=== PATIENT | male | born 1965 | race Hispanic/Latino ===

== ENCOUNTER 2021-07-08 10:06 | Observation (INO) | payer BC ==
[2021-07-08 10:45] LABS: Absolute Lymphocytes (CBC) 2.4 K/uL (0.7-4.9); Basophils % 1.5 % (0-1.3); Hematocrit 45.8 % (39.6-49.0); Lymphocytes % 34.5 % (15.3-44.8)
[2021-07-08 10:49] LABS: Protime INR 0.95
--- NOTE | 2021-07-08 10:56 | RAD REPORT ---
EXAM DESCRIPTION: CT - Head Brain Wo Cont - 07/08/2021 10:37 am CLINICAL HISTORY: PAIN COMPARISON: No comparisons TECHNIQUE: Axial 5 mm thick images of the head were obtained without IV contrast. All CT scans are performed using dose optimization technique as appropriate and may include automated exposure control or mA/KV adjustment according to patient size. FINDINGS: No intracranial hemorrhage, mass, edema or shift of mid-line structures. No acute infarcti on changes seen. No abnormal extra-axial fluid collections. Ventricles are normal. Dense for age art erial calcifications are present. Mastoid air cells and visualized portions of the paranasal sinuses are clear. No acute bony findings. IMPRESSION: Negative noncontrast CT study for acute intracranial finding. Patient has advanced for age arterial tree calcifications.
[2021-07-08] MEDS ORDERED: NA CHLORIDE 0.9% 1,000 ML ONE ×2 (10:58→15:40)
[2021-07-08 11:02] LABS: ALT/SGPT 47 U/L (12-78); AST/SGOT 10 U/L (15-37); Albumin 4.7 g/dL (3.4-5.0); Alkaline Phosphatase 107 U/L (45-117); BUN Blood Urea Nitrogen 49 mg/dL (7-18); Bicarbonate 25 mmol/L (21-32); Bilirubin Direct 0.2 mg/dL (0-0.2); Bilirubin Total 0.6 mg/dL (0.2-1.0); Glucose Level 94 mg/dL (74-106); Magnesium 2.4 mg/dL (1.8-2.4); NT PRO-BNP 16 pg/mL (<125); Potassium 4.1 mmol/L (3.5-5.1); Protein, Total 8.2 g/dL (6.4-8.2); Sodium Level 136 mmol/L (136-145); Troponin (Emerg Dept Use Only) < 0.02 ng/mL (0.0-0.045)
[2021-07-08] MEDS ORDERED: ACETAMINOPHEN 500 MG TAB ONE ×2 (11:29→19:27)
--- NOTE | 2021-07-08 11:29 | RAD REPORT ---
EXAM DESCRIPTION: RAD - Chest Single View - 07/08/2021 10:46 am CLINICAL HISTORY: low bp COMPARISON: None TECHNIQUE: AP portable chest image was obtained 07/08/2021 10:46 am . FINDINGS: Lungs are clear. Heart and vasculature are normal. No measurable pleural effusion and no p neumothorax. No acute bony abnormality seen. No acute aortic findings suspected. IMPRESSION: No acute cardiopulmonary process.
--- NOTE | 2021-07-08 12:38 | ER ---
Nurse's Notes [facility] Name: Pablo Reed Age: 56 yrs Sex: Male : 1965 Arrival Date: 07/08/2021 Time: 10:11 Bed 23 Private MD: Diagnosis: Hypotension, unspecified;Acute kidney failure, unspecified;Dizziness and giddiness Presentation: 07/08 10:12 Chief complaint: Patient states: diizziness, head ache. Coronavirus screen: Client da3 denies travel out of the [place] in the last 14 days. Ebola Screen: No symptoms or risks identified at this time. Risk Assessment: Do you want to hurt yourself or someone else? Patient reports no desire to harm self or others. 10:12 Method Of Arrival: Ambulatory da3 10:12 Acuity: CAMMY 3 da3 11:21 Initial Sepsis Screen: Does the patient meet any 2 criteria? No. Patient's initial vg1 sepsis screen is negative. Does the patient have a suspected source of infection? No. Patient's initial sepsis screen is negative. Onset of symptoms was July 05, 2021. Triage Assessment: 10:16 General: Appears in no apparent distress. comfortable, Behavior is calm, cooperative. da3 Historical: - Allergies: 10:16 No Known Allergies; da3 - Home Meds: 11:20 Lisinopril Oral [Active]; vg1 - PMHx: 12:40 Hypertensive disorder; vg1 - Immunization history:: Client reports receiving the 2nd dose of the Covid vaccine. - Social history:: Smoking status: Patient denies any tobacco usage or history of. Screenin:21 Abuse screen: Denies threats or abuse. Nutritional screening: No deficits noted. vg1 Tuberculosis screening: No symptoms or risk factors identified. Fall Risk No fall in past 12 months (0 pts). No secondary diagnosis (0 pts). IV access (20 points). Ambulatory Aid- None/Bed Rest/Nurse Assist (0 pts). Gait- Normal/Bed Rest/Wheelchair (0 pts) Mental Status- Oriented to own ability (0 pts). Total Medina Fall Scale indicates No Risk (0-24 pts). Assessment: 10:50 General: Appears in no apparent distress. comfortable. Pain: Complains of pain in head vg1 Pain currently is 6 out of 10 on a pain scale. Pain began 2-3 days ago. Neuro: Level of Consciousness is awake, alert, obeys commands, Oriented to person, place, time, situation. Cardiovascular: Patient's skin is warm and dry. Respiratory: Airway is patent Respiratory effort is even, unlabored. GI: Reports nausea, Patient currently denies vomiting. : No signs and/or symptoms were reported regarding the genitourinary system. EENT: No signs and/or symptoms were reported regarding the EENT system. Derm: Skin is intact, is healthy with good turgor. Musculoskeletal: Circulation, motion, and sensation intact. 12:15 Reassessment: Patient appears in no apparent distress at this time. No changes from 1 previously documented assessment. Patient and/or family updated on plan of care and expected duration. Pain level reassessed. Patient is alert, oriented x 3, equal unlabored respirations, skin warm/dry/pink. 13:44 Reassessment: Pt c/o headache, Pain rated 6/10 Received VO from Nilay COMMISSIONER OF [employer]ICIALS to 1 administer Fentanyl 25 mcg IVP x1. 14:49 Reassessment: Patient appears in no apparent distress at this time. Patient and/or vg1 family updated on plan of care and expected duration. Pain level reassessed. Patient is alert, oriented x 3, equal unlabored respirations, skin warm/dry/pink. Vital Signs: 10:14 BP 85 / 55; Pulse 80; Resp 18; Temp 98.4; Pulse Ox 97% on R/A; da3 10:50 BP 100 / 64; Pulse 74; Resp 16; Pulse Ox 100% on R/A; vg1 11:05 BP 97 / 63 Supine; Pulse 68; vg1 11:07 BP 102 / 62 Sitting; Pulse 72; vg1 11:09 BP 98 / 65 Standing; Pulse 75; vg1 11:20 Weight 84.37 kg; Height 5 ft. 10 in. (177.80 cm); vg1 12:00 BP 111 / 65; Pulse 75; Resp 16; Pulse Ox 100% ; vg1 12:30 BP 99 / 60; Pulse 68; Resp 16; Pulse Ox 100% on R/A; vg1 13:00 BP 107 / 65; Pulse 64; Resp 12; Pulse Ox 100% on R/A; vg1 13:30 BP 101 / 57; Pulse 66; Resp 18; Pulse Ox 100% on R/A; vg1 14:00 BP 104 / 61; Pulse 64; Resp 14; Pulse Ox 100% on R/A; vg1 14:30 BP 106 / 71; Pulse 63; Resp 14; Pulse Ox 100% on R/A; vg1 11:20 Body Mass Index 26.69 (84.37 kg, 177.80 cm) vg1 ED Course: 10:11 Patient arrived in ED. am2 10:14 Triage completed. da3 10:21 Mabel Pemberton FNP-C is PHCP. kb 10:21 Gopi Byers MD is Attending Physician. kb 10:33 Dipti Forbes, NUBIA is Primary Nurse. vg1 10:37 CT Head Brain wo Cont In Process Unspecified. EDMS 10:46 XRAY Chest (1 view) In Process Unspecified. EDMS 11:21 Arm band placed on. vg1 11:21 Patient has correct armband on for positive identification. Placed in gown. Bed in low vg1 position. Call light in reach. Side rails up X 1. Adult w/ patient. 12:37 Daniele Kelley MD is Hospitalizing Provider. kb 16:38 No provider procedures requiring assistance completed. Patient admitted, IV remains in vg1 place. 19:25 Inserted saline lock: 20 gauge in left antecubital area, using aseptic technique. Blood bs2 collected. 19:26 Inserted saline lock: 22 gauge in right forearm, using aseptic technique. bs2 22:14 Report given to Annabelle DELACRUZ. vg1 Administered Medications: 11:09 Drug: Tylenol 1000 mg Route: PO; vg1 13:42 Follow up: Response: No adverse reaction vg1 11:10 Drug: NS 0.9% 1000 ml Route: IV; Rate: 1000 ml; Site: right antecubital; vg1 13:42 Follow up: IV Status: Completed infusion; IV Intake: 1000ml vg1 14:20 Drug: fentaNYL (PF) 25 mcg Route: IVP; Site: right antecubital; vg1 16:38 Follow up: Response: No adverse reaction; Marked relief of symptoms vg1 Intake: 13:42 IV: 1000ml; Total: 1000ml. vg1 Outcome: 12:38 Decision to Hospitalize by Provider. kb 16:37 Admitted to ER Hold. Please see [facility] for further documentation. vg1 16:37 Condition: stable 16:37 Instructed on the need for admit. 07/09 12:23 Patient left the ED. jl7 Signatures: Dispatcher [employer] EDMabel Zarate, [employer]-Dillan [employer]-CkMan Gabriel, RN RN jl7 Jane Rodriguez am2 Dipti Forbes, RN RN vg1 Oscar Lazo, RN RN da3 Annabelle Soto, RN RN bs2 Corrections: (The following items were deleted from the chart) 07/08 13:46 13:44 Reassessment: Received VO from Nilay [employer] to administer Fentanyl 25 mcg IVP x1 vg1vg1 19:26 19:25 Inserted saline lock: 20 gauge in right antecubital area, using aseptic bs2 technique. Blood collected. bs2 19:26 19:26 Inserted saline lock: 22 gauge bs2 bs2
--- NOTE | 2021-07-08 12:39 | EDPHYS ---
Physician Documentation [facility] Name: Pablo Reed Age: 56 yrs Sex: Male : 1965 Arrival Date: 07/08/2021 Time: 10:11 Bed 23 Private MD: ED Physician Gopi Byers HPI: 07/08 15:47 This 56 yrs old Male presents to ER via Ambulatory with complaints of Blood kb Pressure Problem - low, Dizziness. 15:47 The patient presents with dizziness. The patient has not recently seen a physician. kb Historical: - Allergies: 10:16 No Known Allergies; da3 - Home Meds: 11:20 Lisinopril Oral [Active]; vg1 - PMHx: 12:40 Hypertensive disorder; vg1 - Immunization history:: Client reports receiving the 2nd dose of the Covid vaccine. - Social history:: Smoking status: Patient denies any tobacco usage or history of. ROS: 15:46 Constitutional: Negative for fever, chills, and weight loss. kb 15:46 Neuro: Positive for dizziness, headache. 15:46 All other systems are negative. Exam: 15:47 Constitutional: This is a well developed, well nourished patient who is awake, alert, kb and in no acute distress. Head/Face: Normocephalic, atraumatic. Eyes: Pupils equal round and reactive to light, extra-ocular motions intact. Lids and lashes normal. Conjunctiva and sclera are non-icteric and not injected. Cornea within normal limits. Periorbital areas with no swelling, redness, or edema. ENT: Moist Mucous membranes Cardiovascular: Regular rate and rhythm with a normal S1 and S2. No gallops, murmurs, or rubs. No pulse deficits. Respiratory: Respirations even and unlabored. No increased work of breathing, no retractions or nasal flaring. Skin: Warm, dry with normal turgor. Normal color. MS/ Extremity: Pulses equal, no cyanosis. Neurovascular intact. Full, normal range of motion. Neuro: Awake and alert, GCS 15, oriented to person, place, time, and situation. Moves all extremities. Normal gait. Psych: Awake, alert, with orientation to person, place and time. Behavior, mood, and affect are within normal limits. Vital Signs: 10:14 BP 85 / 55; Pulse 80; Resp 18; Temp 98.4; Pulse Ox 97% on R/A; da3 10:50 BP 100 / 64; Pulse 74; Resp 16; Pulse Ox 100% on R/A; vg1 11:05 BP 97 / 63 Supine; Pulse 68; vg1 11:07 BP 102 / 62 Sitting; Pulse 72; vg1 11:09 BP 98 / 65 Standing; Pulse 75; vg1 11:20 Weight 84.37 kg; Height 5 ft. 10 in. (177.80 cm); vg1 12:00 BP 111 / 65; Pulse 75; Resp 16; Pulse Ox 100% ; vg1 12:30 BP 99 / 60; Pulse 68; Resp 16; Pulse Ox 100% on R/A; vg1 13:00 BP 107 / 65; Pulse 64; Resp 12; Pulse Ox 100% on R/A; vg1 13:30 BP 101 / 57; Pulse 66; Resp 18; Pulse Ox 100% on R/A; vg1 14:00 BP 104 / 61; Pulse 64; Resp 14; Pulse Ox 100% on R/A; vg1 14:30 BP 106 / 71; Pulse 63; Resp 14; Pulse Ox 100% on R/A; vg1 11:20 Body Mass Index 26.69 (84.37 kg, 177.80 cm) vg1 MDM: 10:22 Patient medically screened. kb 12:37 Data reviewed: vital signs, nurses notes. Data interpreted: Pulse oximetry: on room air kb is 100 %. Interpretation: normal. Counseling: I had a detailed discussion with the patient and/or guardian regarding: the historical points, exam findings, and any diagnostic results supporting the discharge/admit diagnosis, lab results, radiology results, the need for further work-up and treatment in the hospital. Physician consultation: Daniele Kelley MD was contacted at 12:37, regarding admission, to the telemetry unit. patient's condition, and will see patient in ED. 07/08 10: Order name: Basic Metabolic Panel; Complete Time: 11:05 kb 07/08 10: Order name: CBC with Diff; Complete Time: 11:05 kb 07/08 10:21 Order name: LFT's; Complete Time: 11:05 kb 07/08 10: Order name: Magnesium; Complete Time: 11:05 kb 07/08 10:21 Order name: NT PRO-BNP; Complete Time: 11:05 kb 07/08 10:21 Order name: PT-INR; Complete Time: 11:05 kb 07/08 10:21 Order name: Troponin (emerg Dept Use Only); Complete Time: 11:05 kb 07/08 10:21 Order name: XRAY Chest (1 view); Complete Time: 11:32 kb 07/08 10:21 Order name: CT Head Brain wo Cont; Complete Time: 11:05 kb 07/08 14:26 Order name: SARS-COV-2 RT PCR; Complete Time: 14:29 EDMS 07/09 06:07 Order name: CBC with Automated Diff EDMS 07/09 06:36 Order name: Basic Metabolic Panel EDMS 07/08 10:21 Order name: EKG; Complete Time: 10:22 kb 07/08 10:21 Order name: Cardiac monitoring; Complete Time: 11:00 kb 07/08 10:21 Order name: EKG - Nurse/Tech; Complete Time: 11:00 kb 07/08 10:21 Order name: IV Saline Lock; Complete Time: 11:00 kb 07/08 10:21 Order name: Labs collected and sent; Complete Time: 11:00 kb 07/08 10:21 Order name: O2 Per Protocol; Complete Time: 11:00 kb 07/08 10:21 Order name: O2 Sat Monitoring; Complete Time: 11:00 kb 07/08 11:05 Order name: Orthostatics; Complete Time: 11:19 kb 07/08 13:58 Order name: Consistent Carb (ADA) 1800 Hammad EDMS Administered Medications: 11:09 Drug: Tylenol 1000 mg Route: PO; vg1 13:42 Follow up: Response: No adverse reaction vg1 11:10 Drug: NS 0.9% 1000 ml Route: IV; Rate: 1000 ml; Site: right antecubital; vg1 13:42 Follow up: IV Status: Completed infusion; IV Intake: 1000ml vg1 14:20 Drug: fentaNYL (PF) 25 mcg Route: IVP; Site: right antecubital; vg1 16:38 Follow up: Response: No adverse reaction; Marked relief of symptoms vg1 Disposition: 19:31 Co-signature as Attending Physician, Gopi Byers MD I agree with the assessment and kdr plan of care. Disposition Summary: 07/08/21 12:38 Hospitalization Ordered Hospitalization Status: Inpatient Admission kb Provider: Daniele Kelley Condition: Stable kb Problem: new kb Symptoms: are unchanged kb Bed/Room Type: Standard kb Location: [facility] ER HOLD(07/08/21 19:30) Room Assignment: ERHOLD-(07/08/21 19:30) cg Diagnosis - Hypotension, unspecified kb - Acute kidney failure, unspecified kb - Dizziness and giddiness kb Forms: - Medication Reconciliation Form kb - SBAR form kb Signatures: Dispatcher [employer] EDMS Mabel Pemberton, TATIANA-C PLUMBER ASSISTANT-Gopi Eric MD MD kdr Garcia, Cindy, RN RN cg Dipti Forbes RN RN vg1 Oscar Lazo, RN RN da3 Corrections: (The following items were deleted from the chart) 13:20 12:38 CORONAVIRUS+Z ordered. EDWI EDWI 19:30 12:38 Telemetry/MedSurg (Inpatient) kb 19:30 12:38 kb cg
[2021-07-08] MEDS ORDERED: ONDANSETRON 4 MG/2 ML VIAL IV PRN (13:53)
--- NOTE | 2021-07-08 13:58 | P.HP ---
Certification for Inpatient Patient admitted to: Observation With expected LOS: <2 Midnights Patient will require the following post-hospital care: None Practitioner: I am a practitioner with admitting privileges, knowledge of patient current condition, hospital course, and medical plan of care. Services: Services provided to patient in accordance with Admission requirements found in Title 42 Section 412.3 of the Code of Federal Regulations Patient History Date of Service: 07/08/21 Reason for admission: Hypotension, EDD. History of Present Illness: 56-year-old male patient with history of hypertension who was evaluated in the emergency room for episode of weakness and found to be having low blood pressure. He had complained of dizzy spells and headaches. He was worked up in the emergency room was found to have systolic blood pressure in the 80s so he was given normal saline bolus. Labs also revealed elevated creatinine of 2.85. He denies prior history of kidney problems or any family history of kidney disease. He uses lisinopril for blood pressure control and he also reported loose stools that happened over a period of 2 days. He had about 4 episodes of watery diarrhea. No fever or chills. He denies vomiting episode. He did state that he was working out in the open in the heat and he thinks he was dehydrated because of working in the open. He was admitted for observation and hydration secondary to his hypotensive episode and acute kidney injury. Home medications list reviewed: Yes - Past Medical/Surgical History Has patient received pneumonia vaccine in the past: No Review of Systems General: Weakness Eyes: Unremarkable ENT: Unremarkable Respiratory: Unremarkable Cardiovascular: Light Headedness Gastrointestinal: Diarrhea Genitourinary: Unremarkable Musculoskeletal: Unremarkable Integumentary: Unremarkable Neurological: Other (dizziness.) Physical Examination - Physical Exam General: Alert, Oriented x3 HEENT: Atraumatic, Normocephalic Neck: Supple Respiratory: Clear to auscultation bilaterally Cardiovascular: Normal pulses, Regular rate/rhythm Gastrointestinal: Soft and benign Neurological: Normal strength at 5/5 x4 extr, Sensation intact, Cranial nerves 3-12 intact - Studies Laboratory Data (last 24 hrs) 07/08/21 10:23: PT 10.9, INR 0.95 07/08/21 10:23: WBC 6.90, Hgb 15.7, Hct 45.8, Plt Count 327 07/08/21 10:23: Sodium 136, Potassium 4.1, BUN 49 H, Creatinine 2.85 H, Glucose 94, Magnesium 2.4, Total Bilirubin 0.6, AST 10 L, ALT 47, Alkaline Phosphatase 107 Assessment and Plan - Plan Hypotension: Patient did have episode of volume depletion related to diarrhea episode. He also did work out in open and is concerned for significant heat stroke. Evaluation #7 adjust therapy We will monitor symptomatology and vital signs closely. We will continue aggressive isotonic fluid hydration. Acute kidney injury: Elevated creatinine of 2.85 noted on labs. He had issues with volume depletion from diarrhea and also significantly increased insensible losses due to his exposure to the elements. We think this is perhaps the reason for his acute episode. We will continue aggressive hydration and follow symptoms closely History of hypertension: We will hold lisinopril doses at this time and monitor vitals per unit protocol Discharge Plan: Home - Advance Directives Does patient have a Living Will: No Does patient have a Durable POA for Healthcare: No
[2021-07-08] MEDS: NA CHLORIDE 0.9% 1,000 ML IV SCH (14:00)
[2021-07-08] MEDS ORDERED: FENTANYL CITR 100 MCG/2 ML ONE (14:42)
[2021-07-08 15:01] VITALS: BMI 26.6
[2021-07-08] MEDS: HEPARIN 5000 UNIT/ML 1 ML VIAL SQ SCH (17:00)
[2021-07-08] MEDS ORDERED: HEPARIN 5000 UNIT/ML 1 ML VIAL ONE (17:37)
[2021-07-08] MEDS: ACETAMINOPHEN 500 MG TAB PO PRN (19:01)
[2021-07-09] MEDS: NA CHLORIDE 0.9% 1,000 ML IV SCH
[2021-07-09] MEDS: HEPARIN 5000 UNIT/ML 1 ML VIAL SQ SCH (01:00)
[2021-07-09] MEDS ORDERED: NA CHLORIDE 0.9% 1,000 ML ONE (01:36)
[2021-07-09] MEDS ORDERED: FENTANYL CITR 100 MCG/2 ML IV ONE (02:00)
[2021-07-09] MEDS ORDERED: FENTANYL CITR 100 MCG/2 ML ONE ×2 (02:18→06:33)
[2021-07-09 05:57] LABS: Absolute Lymphocytes (CBC) 2.1 K/uL (0.7-4.9); Basophils % 1.2 % (0-1.3); Hematocrit 43.3 % (39.6-49.0); MPV 6.8 fL (7.6-11.3); RBC Red Blood Cell Count 4.63 M/uL (4.33-5.43)
[2021-07-09] MEDS ORDERED: ACETAMINOPHEN 500 MG TAB ONE (07:49)
[2021-07-09] MEDS: ACETAMINOPHEN 500 MG TAB PO PRN (08:30)
[2021-07-09] MEDS ORDERED: HEPARIN 5000 UNIT/ML 1 ML VIAL SQ SCH (09:00)
[2021-07-09] MEDS ORDERED: HEPARIN 5000 UNIT/ML 1 ML VIAL ONE (09:33)
--- NOTE | 2021-07-09 11:28 | P.DS ---
Discharge Date: 07/09/21 Disposition: ROUTINE DISCHARGE Discharge Condition: GOOD Reason for Admission: Hypotension, EDD. Brief History of Present Illness: Pt is a 56-year-old male patient with history of hypertension who was evaluated in the emergency room for episode of weakness and found to be having low blood pressure. He had complained of dizzy spells and headaches. He was worked up in the emergency room was found to have systolic blood pressure in the 80s so he was given normal saline bolus. Labs also revealed elevated creatinine of 2.85. He denies prior history of kidney problems or any family history of kidney disease. He uses lisinopril for blood pressure control and he also reported loose stools that happened over a period of 2 days. He had about 4 episodes of watery diarrhea. No fever or chills. He denies vomiting episode. He did state that he was working out in the open in the heat and he thinks he was dehydrated because of working in the open. He was admitted for observation and hydration secondary to his hypotensive episo de and acute kidney injury. Hospital Course: Patient has been hemodynamically stable. Patient clinically is doing much better and is stable for discharge home. Vital Signs/Physical Exam: Temp Pulse Resp BP Pulse Ox 98.6 F 76 16 114/88 100 07/09/21 08:00 07/09/21 08:00 07/09/21 08:00 07/09/21 08:00 07/09/21 08:00 General: Alert, In no apparent distress, Oriented x3 Laboratory Data at Discharge: WBC 6.00 K/uL (4.3-10.9) 07/09/21 05:43 Hgb 14.8 g/dL (13.6-17.9) 07/09/21 05:43 Hct 43.3 % (39.6-49.0) 07/09/21 05:43 Plt Count 273 K/uL (152-406) 07/09/21 05:43 PT 10.9 SECONDS (9.5-12.5) 07/08/21 10:23 INR 0.95 07/08/21 10:23 Sodium 138 mmol/L (136-145) 07/09/21 05:43 Potassium 5.0 mmol/L (3.5-5.1) 07/09/21 05:43 BUN 30 mg/dL (7-18) H 07/09/21 05:43 Creatinine 1.17 mg/dL (0.55-1.3) D 07/09/21 05:43 Glucose 99 mg/dL (74-106) 07/09/21 05:43 Magnesium 2.4 mg/dL (1.8-2.4) 07/08/21 10:23 Total Bilirubin 0.6 mg/dL (0.2-1.0) 07/08/21 10:23 AST 10 U/L (15-37) L 07/08/21 10:23 ALT 47 U/L (12-78) 07/08/21 10:23 Alkaline Phosphatase 107 U/L (45-117) 07/08/21 10:23 Home Medications: Amlodipine [Norvasc*] 5 mg PO DAILY #30 tab 07/09/21 Tamsulosin [Flomax*] 0.4 mg PO DAILY 07/09/21 New Medications: Amlodipine [Norvasc*] 5 mg PO DAILY #30 tab Physician Discharge Instructions: OK TO DC IV AND DC HOME FOLLOW-UP WITH PCP IN 1-2 WEEKS RETURN TO THE ER IF SYMPTOMS WORSENS REPEAT LABS IN 1 WEEK TO MONITOR RENAL FUNCTION CALL ME IF ANY COMPLAINTS REGARDING HOSPITAL STAY Diet: AHA Activity: Fall precautions Followup: NONE,NONE [Primary Care Provider] - Time spent managing pt's care (in minutes): 35
[2021-07-09 12:05] VITALS: BP 133/87; TEMP 98.1
[2021-07-09 12:47] VITALS: O2SAT 100
--- NOTE | 2021-07-10 10:45 | EKG ---
Test Date: 2021-07-08 Test Time: 10:25:05 Supervisor Last Model Department: [facility] MEASUREMENT RESULTS: Intervals: Rate: 75 WI: 144 QRSD: 88 QT: 350 QTc: 390 [place]: P: 65 WI: 144 QRS: 68 T: 43 INTERPRETIVE STATEMENTS: Normal sinus rhythm Normal ECG No previous ECG available for comparison Electronically Signed On 07-10-21 10:40:21 CDT by Chepe Castaneda
== END 2021-07-09 12:23 | disposition home or self-care (01) ==
LOC: ER 10:06 → ERHOLD 13:54
PROVIDERS: ADMIT Internal Medicine Nephrology; ATTEND Hospitalist
DX: I95.9 Hypotension, unspecified (principal); N17.9 Acute kidney failure, unspecified; I10 Essential (primary) hypertension; Z20.822 Contact with and (suspected) exposure to COVID-19
CPT/HCPCS: 96361; 93005; 85025 ×2; 80048 ×2; 36415; 83735; 85610; 80076; 84484; 83880; 70450; 71045; 96374; 99285; U0003; J1644 ×2; J3010 ×2; J7030 ×3; G0378 ×3

== ENCOUNTER 2022-06-19 06:10 | Emergency (ER) | payer BC, SELFPAY ==
[2022-06-19] MEDS ORDERED: ACETAMINOPHEN 500 MG TAB ONE (06:47)
[2022-06-19] MEDS ORDERED: NA CHLORIDE 0.9% 0 ML ONE (07:00)
[2022-06-19] MEDS ORDERED: NA CHLORIDE 0.9% 1,000 ML ONE (07:07)
[2022-06-19 07:13] LABS: Absolute Lymphocytes (CBC) 0.9 K/uL (0.7-4.9); Hematocrit 44.3 % (39.6-49.0); Lymphocytes % 9.8 % (15.3-44.8); MCV 90.1 fL (80-100); MPV 6.7 fL (7.6-11.3); RBC Red Blood Cell Count 4.92 M/uL (4.33-5.43)
[2022-06-19 07:26] LABS: Potassium 3.9 mmol/L (3.5-5.1)
[2022-06-19] MEDS ORDERED: KETOROLAC 30 MG/ML INJ ONE (08:12)
[2022-06-19 09:04] VITALS: BP 139/82; TEMP 98.8; O2SAT 98
--- NOTE | 2022-06-21 09:17 | ER ---
Nurse's Notes [facility] Name: Pablo Reed Age: 57 yrs Sex: Male : 1965 Arrival Date: 06/19/2022 Time: 06:15 Bed 13 Private MD: Diagnosis: SARS-associated coronavirus as the cause of diseases classified elsewhere Presentation: 06/19 06:20 Chief complaint: Patient states: Fever, sore throat, headache, generalized body aches lp1 that began 1 day ago. 06:20 Method Of Arrival: Ambulatory lp1 06:20 Coronavirus screen: fatigue, fever, headache, sore throat. Ebola Screen: No symptoms or lp1 risks identified at this time. Initial Sepsis Screen: Does the patient meet any 2 criteria? No. Patient's initial sepsis screen is negative. Does the patient have a suspected source of infection? No. Patient's initial sepsis screen is negative. Risk Assessment: Do you want to hurt yourself or someone else? Patient reports no desire to harm self or others. Onset of symptoms was June 19, 2022. 06:20 Acuity: CAMMY 3 lp1 Triage Assessment: 07:00 General: Appears in no apparent distress. uncomfortable, Behavior is calm, cooperative, bp appropriate for age. Pain: Complains of pain in head. EENT: No deficits noted. Neuro: No deficits noted. Cardiovascular: No deficits noted. Respiratory: No deficits noted. GI: No signs and/or symptoms were reported involving the gastrointestinal system. : No signs and/or symptoms were reported regarding the genitourinary system. Derm: No deficits noted. Musculoskeletal: No deficits noted. Historical: - Allergies: 06:43 No Known Allergies; lp1 - Home Meds: 06:43 lisinopril Oral [Active]; lp1 - PMHx: 06:43 Hypertensive disorder; lp1 - PSHx: 06:43 None; lp1 - Immunization history:: Adult Immunizations up to date. - Social history:: Smoking status: Patient denies any tobacco usage or history of. Screenin:44 Abuse screen: Denies threats or abuse. Denies injuries from another. Nutritional lp1 screening: No deficits noted. Tuberculosis screening: No symptoms or risk factors identified. Fall Risk None identified. Assessment: 07:00 Reassessment: RECD REPORT FROM AJ DELACRUZ. 57YO HM P/W FEVER AND FLU-LIKE S/S. ALL bp CURRENT ORDERS COMPLETE, IVF INFUSING. Pain: Complains of pain in head. Respiratory: Airway is patent Respiratory effort is even, unlabored, Breath sounds are clear bilaterally. EENT: Throat is reddened. 08:34 Reassessment: PT D/C HOME AMBULATORY WITH FAMILY, DX WITH COVID. bp Vital Signs: 06:20 BP 162 / 99; Pulse 94; Resp 18; Temp 102.5(O); Pulse Ox 99% on R/A; Weight 86.18 kg lp1 (R); Height 5 ft. 10 in. (177.80 cm); Pain 10/10; 08:16 BP 139 / 82; Pulse 81; Resp 16; Temp 98.8; Pulse Ox 98% ; bp 06:20 Body Mass Index 27.26 (86.18 kg, 177.80 cm) lp1 ED Course: 06:15 Patient arrived in ED. ja2 06:17 Gopi Byers MD is Attending Physician. kdr 06:18 Suresh Berry, NUBIA is Primary Nurse. ke1 06:43 Triage completed. lp1 06:43 Arm band placed on. lp1 06:44 Patient has correct armband on for positive identification. lp1 07:08 Primary Nurse role handed off by Suresh Berry, NUBIA bp 07:08 Alirio Jim, RN is Primary Nurse. bp 07:09 Initial lab(s) drawn, by la, sent to lab. Inserted saline lock: 22 gauge in left ph antecubital area, using aseptic technique. Blood collected. Missed attempt(s): 22 gauge in right antecubital area. 07:29 Attending Physician role handed off by Gopi Byers MD rn 07:29 Sukumar Haney MD is Attending Physician. rn 08:34 No provider procedures requiring assistance completed. IV discontinued, intact, bp bleeding controlled, No redness/swelling at site. Pressure dressing applied. Administered Medications: 06:42 Drug: Tylenol 1000 mg Route: PO; ke1 07:11 Follow up: Response: No adverse reaction bp 07:09 Drug: NS 0.9% 1000 ml Route: IV; Rate: 1 bolus; Site: left antecubital; ph 08:35 Follow up: IV Status: Completed infusion; IV Intake: 1000ml bp 08:08 Drug: Ketorolac 15 mg Route: IVP; Site: left antecubital; bp 08:35 Follow up: Response: Pain is decreased bp Medication: 06:44 VIS not applicable for this client. lp1 Intake: 08:35 IV: 1000ml; Total: 1000ml. bp Outcome: 08:23 Discharge ordered by . rn 08:34 Discharged to home ambulatory, with family. bp 08:34 Condition: stable 08:34 Discharge instructions given to patient, family, Instructed on discharge instructions, follow up and referral plans. Demonstrated understanding of instructions, follow-up care. 08:36 Patient left the ED. bp Signatures: Gopi Byers MD MD kdr Nieto, Roman, MD MD rn Pena, Laura RN RN lp1 Oxana Guerra RN RN Alirio Huddleston RN RN Chelsie Zelaya Kouassi RN RN ke1
--- NOTE | 2022-06-21 09:17 | EDPHYS ---
Physician Documentation [facility] Name: Pablo Reed Age: 57 yrs Sex: Male : 1965 Arrival Date: 06/19/2022 Time: 06:15 Bed 13 Private MD: ED Physician Sukumar Haney HPI: 06/19 06:42 This 57 yrs old Male presents to ER via Unassigned with complaints of Sore kdr Throat, Fever, Headache. 06:42 The patient presents with sore throat, dysphagia, of both solids and liquids. The kdr patient describes throat pain as intermittent, raw, scratchy. Onset: The symptoms/episode began/occurred gradually, yesterday. Severity of symptoms: At their worst the symptoms were mild, moderate, just prior to arrival, in the emergency department the symptoms are unchanged. Modifying factors: The symptoms are alleviated by nothing, the symptoms are aggravated by nothing. Associated signs and symptoms: Pertinent positives: dysphagia, fever, flu-like symptoms, malaise, Sore throat. The patient has not experienced similar symptoms in the past. The patient has not recently seen a physician. Historical: - Allergies: 06:43 No Known Allergies; lp1 - Home Meds: 06:43 lisinopril Oral [Active]; lp1 - PMHx: 06:43 Hypertensive disorder; lp1 - PSHx: 06:43 None; lp1 - Immunization history:: Adult Immunizations up to date. - Social history:: Smoking status: Patient denies any tobacco usage or history of. ROS: 06:42 Eyes: Negative for injury, pain, redness, and discharge. kdr 06:42 Neck: Negative for injury, pain, and swelling, Cardiovascular: Negative for chest pain, palpitations, and edema, Respiratory: Negative for shortness of breath, cough, wheezing, and pleuritic chest pain, Abdomen/GI: Negative for abdominal pain, nausea, vomiting, diarrhea, and constipation, Back: Negative for injury and pain, : Negative for injury, bleeding, discharge, and swelling, MS/Extremity: Negative for injury and deformity, Skin: Negative for injury, rash, and discoloration, Neuro: Negative for headache, weakness, numbness, tingling, and seizure activity. Psych: Negative for depression, anxiety, suicide ideation, homicidal ideation, and hallucinations, Allergy/Immunology: Negative for hives, rash, and allergies, Endocrine: Negative for neck swelling, polydipsia, polyuria, polyphagia, and marked weight changes, Hematologic/Lymphatic: Negative for swollen nodes, abnormal bleeding, and unusual bruising. 06:42 Constitutional: Positive for body aches, chills, fever, malaise. 06:42 ENT: Positive for sore throat. Exam: 06:42 Constitutional: This is a well developed, well nourished patient who is awake, alert, kdr and in no acute distress. Head/Face: Normocephalic, atraumatic. Eyes: Pupils equal round and reactive to light, extra-ocular motions intact. Lids and lashes normal. Conjunctiva and sclera are non-icteric and not injected. Cornea within normal limits. Periorbital areas with no swelling, redness, or edema. Neck: Trachea midline, no thyromegaly or masses palpated, and no cervical lymphadenopathy. Supple, full range of motion without nuchal rigidity, or vertebral point tenderness. No Meningismus. Chest/axilla: Normal chest wall appearance and motion. Nontender with no deformity. No lesions are appreciated. Cardiovascular: Regular rate and rhythm with a normal S1 and S2. No gallops, murmurs, or rubs. Normal PMI, no JVD. No pulse deficits. Respiratory: Lungs have equal breath sounds bilaterally, clear to auscultation and percussion. No rales, rhonchi or wheezes noted. No increased work of breathing, no retractions or nasal flaring. Abdomen/GI: Soft, non-tender, with normal bowel sounds. No distension or tympany. No guarding or rebound. No evidence of tenderness throughout. Back: No spinal tenderness. No costovertebral tenderness. Full range of motion. Skin: Warm, dry with normal turgor. Normal color with no rashes, no lesions, and no evidence of cellulitis. MS/ Extremity: Pulses equal, no cyanosis. Neurovascular intact. Full, normal range of motion. Neuro: Awake and alert, GCS 15, oriented to person, place, time, and situation. Cranial nerves II-XII grossly intact. Motor strength 5/5 in all extremities. Sensory grossly intact. Cerebellar exam normal. Normal gait. Psych: Awake, alert, with orientation to person, place and time. Behavior, mood, and affect are within normal limits. Vital Signs: 06:20 BP 162 / 99; Pulse 94; Resp 18; Temp 102.5(O); Pulse Ox 99% on R/A; Weight 86.18 kg lp1 (R); Height 5 ft. 10 in. (177.80 cm); Pain 10/10; 08:16 BP 139 / 82; Pulse 81; Resp 16; Temp 98.8; Pulse Ox 98% ; bp 06:20 Body Mass Index 27.26 (86.18 kg, 177.80 cm) lp1 MDM: 06:42 Data reviewed: vital signs, nurses notes, lab test result(s), radiologic studies. kdr Counseling: I had a detailed discussion with the patient and/or guardian regarding: the historical points, exam findings, and any diagnostic results supporting the discharge/admit diagnosis, lab results. 07:29 Patient medically screened. rn 08:21 Differential diagnosis: group A strep tonsillitis, influenza, upper respiratory rn infection, viral syndrome COVID. Special discussion: I discussed with the patient/guardian in detail that at this point there is no indication for admission to the hospital. It is understood, however, that if the symptoms persist or worsen the patient needs to return immediately for re-evaluation. ED course: Signed out to me by Dr. Byers, pending COVID test, plan was to dc home as normal vitals without oxygen requirement. . 08 06:24 Order name: Strep; Complete Time: 07:49 ke1 06/19 06:24 Order name: Flu; Complete Time: 07:49 ke1 06/19 06:29 Order name: SARS-COV-2 RT PCR (Document "Date of Onset" if Symptomatic) ll3 06/19 06:42 Order name: CBC with Diff; Complete Time: 07:49 kdr 08 06:42 Order name: Chem 7; Complete Time: 07:49 kdr 06/19 07:04 Order name: Throat Culture EDMS Administered Medications: 06:42 Drug: Tylenol 1000 mg Route: PO; ke1 07:11 Follow up: Response: No adverse reaction bp 07:09 Drug: NS 0.9% 1000 ml Route: IV; Rate: 1 bolus; Site: left antecubital; ph 08:35 Follow up: IV Status: Completed infusion; IV Intake: 1000ml bp 08:08 Drug: Ketorolac 15 mg Route: IVP; Site: left antecubital; bp 08:35 Follow up: Response: Pain is decreased bp Disposition Summary: 06/19/22 08:23 Discharge Ordered Location: Home rn Problem: new rn Symptoms: have improved rn Condition: Stable rn Diagnosis - SARS-associated coronavirus as the cause of diseases classified elsewhere rn Followup: rn - With: Private Physician - When: As needed - Reason: Recheck today's complaints, Re-evaluation by your physician Discharge Instructions: - Discharge Summary Sheet rn - COVID-19 rn - 10 Things You Can Do to Manage Your COVID-19 Symptoms at Home - [facility] rn - Viral Illness, Adult rn - Prevent the Spread of COVID-19 if You Are Sick - [facility] rn Forms: - Medication Reconciliation Form rn - Thank You Letter rn - Antibiotic rn transfer - Prescription Opioid Use rn Signatures: Dispatcher [employer] Gopi Wright MD MD kdr Nieto, Roman, MD MD rn Pena, Laura, RN RN lp1 Oxana Guerra RN RN Alirio Huddleston, RN RN bp Suresh Berry, RN RN ke1
== END 2022-06-19 08:36 | disposition home or self-care (01) ==
LOC: ER 06:10
DX: U07.1 COVID-19 (principal); I10 Essential (primary) hypertension
CPT/HCPCS: 36415; 80048; 85025; 87070; 87081; 87804; 96361; 96374; 99283; J7030; U0003